=== PATIENT | female | born 1990 | race Caucasian/White ===

== ENCOUNTER 2017-06-28 09:15 | Emergency (ER) | payer MEDICAID ==
[~2017-06-28] VITALS: Ht 165.1 cm; Wt 102.7 kg
[2017-06-28 09:31] VITALS: BP 116/84
[2017-06-28 09:54] LABS: URINE HCG NEGATIVE (NEG)
[2017-06-28 09:55] LABS: CLARITY,URINE SLIGHTLY CLOUDY (Clear); COLOR,URINE YELLOW (Yellow); GLUCOSE, URINE NEGATIVE (Neg); KETONES,URINE NEGATIVE (Neg); LEUKOCYTE ESTERASE ,URINE NEGATIVE (Neg); NITRITES, URINE NEGATIVE (Neg); OCCULT BLOOD,URINE LARGE (Neg); PROTEIN,URINE TRACE mg/dl (Neg); UROBILINOGEN,URINE 0.2 E.U/dL (0.2-1.0)
[2017-06-28 10:03] LABS: UA COLLECTION TYPE CLN CATCH MIDSTREAM
[2017-06-28 10:06] LABS: BACTERIA,URINE FEW /HPF (Neg); RBC,URINE TNTC /HPF (0-2); SQUAMOUS EPITHELIAL CELL,UR FEW /LPF (FEW)
== END 2017-06-28 11:11 | disposition home or self-care (01) ==
LOC: ER 09:16
DX: N93.8 Other specified abnormal uterine and vaginal bleeding (principal); E11.9 Type 2 diabetes mellitus without complications
CPT/HCPCS: 81001; 81025; 87088; 99284

== ENCOUNTER 2017-08-29 11:53 | Emergency (ER) | payer MEDICAID ==
[~2017-08-29] VITALS: Ht 165.1 cm; Wt 81.0 kg
[2017-08-29 12:43] VITALS: BP 118/89
== END 2017-08-29 12:44 | disposition home or self-care (01) ==
LOC: ER 11:54
DX: R09.82 Postnasal drip (principal)
CPT/HCPCS: 99281